=== PATIENT | male | born 1950 | race Caucasian/White ===

== ENCOUNTER 2016-05-04 12:05 | Day surgery (SDC) | payer OTHER ==
[2016-05-03 14:34] VITALS: BMI 28.1
[~2016-05-04 12:05] MED LIST: DEXAMETHASONE SOD PHOSPHATE 10 MG/ML 1 ML VIAL IV ONE; HEPARIN SODIUM,PORCINE 5,000 UNIT/ML 1 ML VIAL SQ ONE; LACTATED RINGERS 1,000 ML IV SCH; LIDOCAINE 1% 20 ML VIAL (10MG/ML) FOR IV START INTRADERMA PRN; MORPHINE SULFATE 4 MG/ML SYRINGE IV PRN; ONDANSETRON 4 MG/2 ML VIAL IVP ONE; SCOPOLAMINE 1.5MG/72HR PATCH TRANSDERM ONE; ceFAZolin 2 GM in SODIUM CHLORIDE 0.9% 100 ML IVPB ONE
[2016-05-04] MEDS ORDERED: fentaNYL (PF) 50 MCG/ML 2 ML AMP ONE (15:02)
[2016-05-04] MEDS ORDERED: LIDOCAINE 1% INJ 10MG/ML (20 ML MDV) ONE (15:02)
[2016-05-04] MEDS ORDERED: MIDAZOLAM 2 MG/2 ML VIAL ONE (15:02)
[2016-05-04] MEDS ORDERED: PROPOFOL 10 MG/ML 20 ML VIAL IV ONE (15:02)
[2016-05-04] MEDS ORDERED: BUPIVACAIN-EPI 0.25%-1:200,000 30 ML VIAL SQ ONE ×3 (15:25)
[2016-05-04] MEDS ORDERED: LACTATED RINGERS 1,000 ML IV ONE (15:48)
[2016-05-04 16:12] VITALS: TEMP 97.6
[2016-05-04 16:16] VITALS: RESP 16
--- NOTE | 2016-05-04 16:33 | P.OP ---
Date of Procedure: 05/04/16 Preoperative Diagnosis: Incarcerated umbilical hernia Postoperative Diagnosis: SAme Procedure(s) Performed: Open umbilical hernia repair without mesh Implants: NA Anesthesia: BERENICEA, local Surgeon: Fozia Guzmán Pathology: other Condition: stable Disposition: PACU Indications for Procedure: 66 years old male presents for umbilical hernia repair. He has incarcerated umbilical hernia with skin necrosis. Patient also has inguinal hernia. He was explained that no mesh can be put in in case of active infection. Hence this is going to be two-stage surgery. Today's surgery would involve excision of the necrotic skin and primary repair of the umbilical hernia. A definite elective surgery would be performed to repair both groin hernias and umbilical hernia with mesh on a future date Operative Findings: Incarcerated umbilical hernia with skin necrosis Description of Procedure: The patient was brought to the operating room and placed in supine position. Gen. anesthesia with endotracheal intubation was performed as per anesthesia team. Chlorhexidine was used to prep the skin followed by application of sterile drapes. A timeout was performed to verify correct patient and correct procedure. Patient was confirmed to receive perioperative IV antibiotics and bilateral SCDs were placed along with a demonstration of subcutaneous heparin. There was a incarcerated umbilical hernia with skin necrosis. An elliptical skin incision was made to excise the necrotic skin. Umbilical hernia containing preperitoneal fat was identified. This was reduced. The final defect measured 2 x 2 cm. The defect was closed with figure of eights sutures of #1 Surgilon. The subcutaneous tissue was closed in 2 layers. Dermabond skin glue was applied. Patient tolerated the procedure well. The sponge, instrument and needle count were correct 2
[2016-05-04 17:24] VITALS: BP 154/82; PULSE 73
== END 2016-05-04 17:51 | disposition home or self-care (01) ==
LOC: OR 12:05
PROVIDERS: ATTEND Surgery
DX: K42.0 Umbilical hernia with obstruction, without gangrene (principal); I96 Gangrene, not elsewhere classified; I10 Essential (primary) hypertension; Z86.73 Personal history of transient ischemic attack (TIA), and cerebral infarction without residual deficits; Z79.82 Long term (current) use of aspirin; Z79.899 Other long term (current) drug therapy
CPT/HCPCS: 84153; 87070; 87205; 87075; 36415; 49587; J2250; J1644; J1100; J0690; J2405; J2001; J3010; J2704

== ENCOUNTER → 2016-05-04 | Outpatient (CLI) | payer OTHER | END | disposition home or self-care (01) | LOC: LABWHC1 10:51 | PROVIDERS: ATTEND Urology | DX: R97.20 Elevated prostate specific antigen [PSA] (principal) | CPT/HCPCS: 36415; 84153 ==

== ENCOUNTER → 2016-05-14 | Outpatient (CLI) | payer OTHER | END | disposition home or self-care (01) | LOC: LABWHC1 07:57 | PROVIDERS: ATTEND Surgery | DX: Z01.818 Encounter for other preprocedural examination (principal) | CPT/HCPCS: 87070 ==

== ENCOUNTER 2016-06-17 07:00 | Day surgery (SDC) | payer OTHER ==
[2016-06-16 08:20] VITALS: BMI 27.9
[~2016-06-17 07:00] MED LIST changes: +HYDROmorphone 1 MG/ML 1 ML SYRINGE IVP PRN; -LIDOCAINE 1% 20 ML VIAL (10MG/ML) FOR IV START INTRADERMA PRN; +MIDAZOLAM 2 MG/2 ML VIAL IV PRN; -MORPHINE SULFATE 4 MG/ML SYRINGE IV PRN
[2016-06-17 07:22] VITALS: TEMP 97.7
[2016-06-17] MEDS ORDERED: LIDOCAINE 1% 20 ML VIAL (10MG/ML) FOR IV START INTRADERMA ONE (07:40)
[2016-06-17 07:46] LABS: Basophils # (A) 0.1 k/uL (0-0.2); Basophils % (A) 1 %; CH 29.7; CHCM 34.9; Eosinophils # (A) 0.3 k/uL (0-0.7); Eosinophils % (A) 5 %; HCT 47.5 % (39.0-53.0); HDW 3.09; HGB 15.9 gm/dL (13.0-17.5); Luc # (Auto) 0.09; Luc % (Auto) 1; Lymphocytes # (A) 1.4 k/uL (1.0-4.8); Lymphocytes % (A) 22 %; MCH 28.6 pg (25.0-35.0); MCHC 33.5 g/dL (31.0-37.0); MCV 85.4 fL (80.0-100.0); Monocytes # (A) 0.5 k/uL (0-1.0); Monocytes % (A) 8 %; Neutrophils # (A) 4.2 k/uL (1.3-7.7); Neutrophils % (A) 64 %; RBC 5.56 m/uL (4.30-5.90); RDW 14.5 % (11.5-15.5); WBC 6.5 k/uL (3.8-10.6); WBC (Perox) 6.53
[2016-06-17 08:00] LABS: Anion Gap 11 mmol/L; Blood Urea Nitrogen 19 mg/dL (9-20); Calcium 9.3 mg/dL (8.4-10.2); Carbon Dioxide 23 mmol/L (22-30); Chloride 110 mmol/L (98-107); Glucose 123 mg/dL (74-99); Non-African American GFR(MDRD) >60 (>60 ml/min/1.73 sqM); Potassium 4.3 mmol/L (3.5-5.1); Sodium 144 mmol/L (137-145)
[2016-06-17] MEDS ORDERED: fentaNYL (PF) 50 MCG/ML 2 ML AMP ONE (08:13)
[2016-06-17] MEDS ORDERED: ROCURONIUM BROMIDE 10 MG/ML 10 ML VIAL IV ONE (08:13)
[2016-06-17] MEDS ORDERED: NEOSTIGMINE 1 MG/ML 10 ML VIAL ONE (08:13)
[2016-06-17] MEDS ORDERED: LIDOCAINE 1% INJ 10MG/ML (20 ML MDV) ONE (08:13)
[2016-06-17] MEDS ORDERED: ePHEDrine 50 MG/ML 1 ML AMP ONE (08:13)
[2016-06-17] MEDS ORDERED: GLYCOPYRROLATE 0.2 MG/ML 2 ML VIAL ONE (08:13)
[2016-06-17] MEDS ORDERED: PHENYLEPHRINE-0.9% NACL SYG 1 MG/10 ML SYRINGE ONE (08:13)
[2016-06-17] MEDS ORDERED: ONDANSETRON 4 MG/2 ML VIAL ONE (08:13)
[2016-06-17] MEDS ORDERED: PROPOFOL 10 MG/ML 20 ML VIAL IV ONE (08:13)
[2016-06-17] MEDS ORDERED: SUCCINYLCHOLINE CHLORIDE 100 MG/5 ML SYR IV ONE (08:13)
[2016-06-17] MEDS ORDERED: HYDROmorphone (PF) 1 MG/ML ONE (08:13)
[2016-06-17] MEDS ORDERED: MIDAZOLAM 2 MG/2 ML VIAL ONE (08:13)
--- NOTE | 2016-06-17 08:14 | P.GSHP ---
History of Present Illness H&P Date: 06/17/16 Chief Complaint: Umbiloical hernia and right inguinal hernia 66 yrs old male presents with incarcerated umbilical hernia with redness and skin necrosis. He had tooth extraction and was treated with PCN and has helped with the redness. He also has right inguinal hernia . No obstruction. No fever, chills, rigors. He is S/P excision of necrotic skin and primary umbilical hernia repair without any mesh ROS Constitutional: No fever, chills or rigors. 20 lbs weight loss or loss of appetite. HEENT: No difficulty with hearing, vision and swallowing. Lymphatic: No axillary, inguinal and cervical swellings. Endocrine: No thyroid disorders. Denies history of diabetes. Respiratory: No chest pain, shortness of breath, and cough. No hemoptysis. Cardiovascular: No palpitations, irregular HR Gastrointestinal: Denies heartburn. No change in bowel habits. No nausea or vomiting. Genitourinary: No increase in urinary frequency or urgency. No hematuria. Musculoskeletal: No back pain, joint stiffness or pain. Neurologic: No history of seizure disorder and headaches. Psychiatric: Denies depression or anxiety . No suicidal ideation. Hematologic: Denies any abnormal mucosal bleeding or easy bruising. Physical Exam Patient is a 66-year-old male. Constitutional: General Appearance: healthy-appearing, well-nourished, and well- developed. Level of Distress: NAD. Ambulation: ambulating normally. Psychiatric: Insight: good judgement. Orientation: to time, place, and person. Head: Head: normocephalic and atraumatic. Eyes: Lids and Conjunctivae: no discharge or pallor and non-injected. Sclerae: non-icteric. ENMT: Oropharynx: moist mucous membranes. Abdomen: Bowel Sounds: normal. Inspection and Palpation: no tenderness or guarding and soft and non-distended. Hernia: inguinal R and wellhealed umbilical hernia scar. Diastasis recti present Musculoskeletal:: Motor Strength and Tone: normal and normal tone. Joints, Bones , and Muscles: normal movement of all extremities. Extremities: no cyanosis or edema. Neurologic: Gait and Station: normal gait and station. Cranial Nerves: grossly intact. Assessment / Plan 1. Ventral/umbilical hernia and right inguinal hernia 2. Informed consent obtained from the patient after explaining the risks, benefits and potential complications of laparoscopic /robotic ventral hernia and inguinal hernia including bleeding, infection, bruising, DVT and recurrence and possibility of converting to open 3. Patient demonstrated understanding of the procedure and agreed to undergo laparoscopic/robotic ventral hernia repair with mesh possible open and possible bilateral inguinal hernia repair with mesh 4. Expected post op course discussed including no heavy lifting >10 lbs for 6 weeks post surgery Preop orders: 1. Ancef 2 gm IVPB x1 2. Bilateral lower extremity SCDs 3. Heparin 5000 Units SQ injection x1 1. Irreducible umbilical hernia K42.0: Umbilical hernia with obstruction, without gangrene 2. Right inguinal hernia K40.90: Unilateral inguinal hernia, without obstruction or gangrene, not specified as recurrent Past Medical History Past Medical History: CVA/TIA, Hypertension Additional Past Medical History / Comment(s): WEAKNESS LEFT SIDE OF FACE, OCCASIONAL PROBLEM SPEECH, inguinal and umbilical History of Any Multi-Drug Resistant Organisms: None Reported Past Surgical History: Hernia Repair, Tonsillectomy Additional Past Surgical History / Comment(s): umbilical hernia 05/04/16, TEETH EXTRACTIONS Past Anesthesia/Blood Transfusion Reactions: No Reported Reaction Past Psychological History: No Psychological Hx Reported Smoking Status: Never smoker Past Alcohol Use History: Rare Past Drug Use History: None Reported - Past Family History Father Family Medical History: Cancer Additional Family Medical History / Comment(s): COLON CANCER Medications and Allergies Home Medications Medication Instructions Recorded Confirmed Type Aspirin 81 mg PO DAILY 05/03/16 06/16/16 History amLODIPine [Norvasc] 10 mg PO QAM 05/03/16 06/16/16 History Losartan Unknown Dose 1 tab PO QAM 06/16/16 History Allergies Allergy/AdvReac Type Severity Reaction Status Date / Time No Known Allergies Allergy Verified 06/16/16 08:13 Surgical - Exam Vital Signs Temp Pulse Resp BP Pulse Ox 97.7 F 54 L 16 154/75 96 06/17/16 07:20 06/17/16 07:20 06/17/16 07:20 06/17/16 07:20 06/17/16 07:20 Results - Labs 06/17/16 07:25 06/17/16 07:25 Abnormal Lab Results - Last 24 Hours (Table) 06/17/16 Range/Units 07:25 Chloride 110 H (98-107) mmol/L Glucose 123 H (74-99) mg/dL Diabetes panel 06/17/16 Range/Units 07:25 Sodium 144 (137-145) mmol/L Potassium 4.3 (3.5-5.1) mmol/L Chloride 110 H (98-107) mmol/L Carbon Dioxide 23 (22-30) mmol/L BUN 19 (9-20) mg/dL Creatinine 0.84 (0.66-1.25) mg/dL Glucose 123 H (74-99) mg/dL Calcium 9.3 (8.4-10.2) mg/dL Calcium panel 06/17/16 Range/Units 07:25 Calcium 9.3 (8.4-10.2) mg/dL Pituitary panel 06/17/16 Range/Units 07:25 Sodium 144 (137-145) mmol/L Potassium 4.3 (3.5-5.1) mmol/L Chloride 110 H (98-107) mmol/L Carbon Dioxide 23 (22-30) mmol/L BUN 19 (9-20) mg/dL Creatinine 0.84 (0.66-1.25) mg/dL Glucose 123 H (74-99) mg/dL Calcium 9.3 (8.4-10.2) mg/dL Adrenal panel 06/17/16 Range/Units 07:25 Sodium 144 (137-145) mmol/L Potassium 4.3 (3.5-5.1) mmol/L Chloride 110 H (98-107) mmol/L Carbon Dioxide 23 (22-30) mmol/L BUN 19 (9-20) mg/dL Creatinine 0.84 (0.66-1.25) mg/dL Glucose 123 H (74-99) mg/dL Calcium 9.3 (8.4-10.2) mg/dL
[2016-06-17] MEDS ORDERED: BUPIVACAIN-EPI 0.25%-1:200,000 30 ML VIAL SQ ONE (08:50)
[2016-06-17] MEDS ORDERED: LACTATED RINGERS 1,000 ML IV ONE ×2 (10:56→14:43)
[2016-06-17 12:47] VITALS: RESP 18
[2016-06-17] MEDS ORDERED: HYDROcodone/APAP 5-325MG 1 EACH TAB PO ONE (15:29)
[2016-06-17 15:33] VITALS: BP 116/62; PULSE 90
[2016-06-17] MEDS ORDERED: TAMSULOSIN 0.4 MG CAP.ER.24H PO STA (16:32)
--- NOTE | 2016-06-22 13:26 | P.OP ---
Date of Procedure: 06/17/16 Preoperative Diagnosis: 1. Bilateral inguinal hernia 2. Umbilical hernia 3. Hypertension 4. Benign prostatic hypertrophy Postoperative Diagnosis: Same Procedure(s) Performed: Robotic-assisted laparoscopic bilateral indirect hernia repair with mesh Robotic assist laparoscopic umbilical hernia repair with mesh Implants: Covidien Progrip x2 Ventralight ST 11.4 cm circular Anesthesia: DARRON Surgeon: Fozia Guzmán Estimated Blood Loss (ml): 15 Pathology: none sent Condition: other (ASA 3) Disposition: PACU Indications for Procedure: 66 years old male presents with bilateral inguinal hernia. He had infected umbilical hernia which was primarily repaired without any mesh. Informed consent obtained and patient elected to undergo robotic assist laparoscopic bilateral inguinal hernia repair with mesh and umbilical hernia repair with mesh. Operative Findings: Bilateral large direct inguinal hernias Umbilical hernia defect reinforced using ventralight ST mesh Description of Procedure: The patient was brought to the operating room and placed in supine position. General anesthesia with endotracheal intubation was performed as per anesthesia team. Both arms were tucked against the abdominal wall and a shunt was positioned in lithotomy using yellowfin stirrups. A alvarado catheter was inserted under sterile aseptic precautions. Chlorhexidine was used to prep the skin followed by application of sterile drapes and Ioban dressing. A timeout was performed to verify correct patient, correct procedure and correct side. Patient was confirmed to receive perioperative IV antibiotics, subcutaneous heparin 5000 units and bilateral SCDs were placed. A 2 mm skin incision was made in the left subcostal area and Veress needle was inserted to establish pneumoperitoneum to a pressure of 15 mmHg. A 1.5 cm supraumbilical incision was made which was deepened through the subcutaneous tissue . Two additional 8 mm skin incisions were made on either side of the midline approximately 8 cm away. A 5 mm 30 laparoscope was used to enter the peritoneum using direct Optiview technique. A 8 mm robotic trocar was inserted in the supraumbilical area and 8 mm robotic trocars were inserted on either side of the midline. The patient was placed in Trendelenburg position and the robot was brought in between the legs. The robotic arms including the camera arm were docked on the trocars. The robotic prograsp and monopolar scissors were introduced via arm 1 and 2 respectively. Upon inspection of the peritoneal cavity, bilateral direct hernias identified. The العلي anatomical landmarks including the pubic symphysis, median and medial umbilical ligaments and bilateral epigastric vessels were identified. Attention was focused on the left side first. Using monopolar scissors a peritoneal flap was created extending medially from the median umbilical ligament and laterally to the direct hernia space. Using gentle traction and countertraction the flap was developed posteriorly. Loose fibrofatty tissue was bluntly dissected. Medially the dissection was carried along the Carlos's ligament till pubic tubercle was identified. Care was taken to stay away from the urinary bladder. Dissection was carried out to leave the epigastric vessels against the anterior abdominal wall and laterally beyond the hernia defect. The direct hernia sac was completely reduced. The iliofemoral vessels were identified. The peritoneal reflection overlying the spermatic cord was also dissected off. Care was taken not to injure any gonadal vessels or spermatic cord. Enough inferior dissection was carried out 2 cm below the hernia defect. No indirect hernia noted. Attention was then focused on the right side where similar dissection was performed to identify the above-mentioned العلي anatomical landmarks. Gentle traction and countertraction helped in reduction of the hernia sac. No bleeding was encountered. The iliofemoral vessels, spermatic cord and vas deferens were protected at all times. Laparoscopic parietex progrip mesh was rolled and introduced through the 12 mm camera port. The right mesh was placed in the preperitoneal cavity with green portion overlying the pubic tubercle . The mesh was rolled upwards so that the mesh covered the direct , indirect inguinal hernia and the femoral hernia space without any kinks or folds. Similarly left parietex progrip mesh was rolled and introduced through the 12 mm camera port and secured over the right direct, indirect and femoral hernia space. The peritoneal flap was then sutured to the cut edge of the peritoneum using continuous 2-0 V lock sutures. The hernia sacs were completely reduced and the mesh lay flat without any kinks or folds. The 12 mm trocar site was closed using Joby Lynch device. The robotic arms were then undocked and 30 degree laparoscope was inserted. Additional one 8 mm trocars was placed in the left lower quadrant and 12 mm trocar in the left lateral abdomen.The da Artem robot was then docked. The 30 robotic camera was used. A robotic prograsp and monopolar scissors were inserted through 8 mm robotic trocars The falciform ligament was divided using monopolar scissors close to the anterior abdominal wall to create a landing zone for the mesh. The prior umbilical hernia was closed and decision was made to reinforce it with an underlay mesh/ A Ventralight ST 11.4 cm circular mesh was tagged in the center using a prolene stitich and was rolled and introduced to the abdominal cavity via the 12 mm trocar.A Joby Bebeto device was inserted through the middle of the hernia defect and the stay suture on the mesh was grasped to elevate the mesh against the anterior abdominal wall. The mesh was circumferentially sutured to the peritoneum of the anterior abdominal wall using 2-0 V lock without any folds or kinks. The robot was then undocked. Laparoscopic 30 degrees camera was reinserted. All trocar sites were examined. No evidence of bleeding. The 12 mm trocar site was closed using two transfascial sutures of 0 Vicryl which were placed using a Joby Bebeto device. Along the All the needles were removed from the abdominal cavity.The sponge, instrument and needle count were correct x2. The skin was closed with interrupted sutures of 4-0 Monocryl. Dermabond skin glue was applied followed by Telfa and Tegaderm dressing. Alvarado catheter was removed and scrotum was palpated to confirm the position of the testicles. The patient tolerated the procedure well and was taken to post anesthesia care unit in stable condition
== END 2016-06-17 18:03 | disposition home or self-care (01) ==
LOC: OR 07:00
PROVIDERS: ATTEND Surgery
DX: K40.20 Bilateral inguinal hernia, without obstruction or gangrene, not specified as recurrent (principal); K42.0 Umbilical hernia with obstruction, without gangrene; I10 Essential (primary) hypertension; N40.0 Benign prostatic hyperplasia without lower urinary tract symptoms; I69.392 Facial weakness following cerebral infarction; I69.328 Other speech and language deficits following cerebral infarction; Z79.82 Long term (current) use of aspirin; Z79.891 Long term (current) use of opiate analgesic; Z79.899 Other long term (current) drug therapy; Z80.0 Family history of malignant neoplasm of digestive organs
CPT/HCPCS: 80048; 85025; 49653; 49650; C1781 ×2; J2250; J1644; J1100; J2710; J0690; J2405; J2001; J3010; J1170; J2370; J0330; J2704

== ENCOUNTER → 2016-08-03 | Outpatient (CLI) | payer OTHER ==
[2016-08-03 18:17] LABS: ALT 49 U/L (21-72); AST 35 U/L (17-59)
== END | disposition home or self-care (01) ==
LOC: LABWHC1 17:18
PROVIDERS: ATTEND Podiatrist Foot & Ankle Surgery
DX: K74.60 Unspecified cirrhosis of liver (principal)
CPT/HCPCS: 36415; 84450; 84460

== ENCOUNTER 2016-11-17 09:02 | Emergency (ER) | payer OTHER ==
[2016-11-17] MEDS ORDERED: ceFAZolin 2 GM in SODIUM CHLORIDE 0.9% 100 ML IVPB STA (09:30)
[2016-11-17] MEDS ORDERED: DIPH,PERTUS(ACELL)TETVAC-LF 0.5 ML VIAL IM ONE (09:30)
[2016-11-17] MEDS ORDERED: HYDROmorphone 1 MG/ML 1 ML SYRINGE IVP STA (09:32)
[2016-11-17] MEDS ORDERED: LORazepam 2 MG/ML SYRINGE IV STA (10:35)
--- NOTE | 2016-11-17 11:04 | ED ---
General Adult HPI <Dwayne Wayne - Last Filed: 11/17/16 13:04> - General Source: patient, EMS, RN notes reviewed, old records reviewed Mode of arrival: EMS Limitations: no limitations <Gaby Lizama - Last Filed: 11/18/16 13:55> - General Chief complaint: Trauma Stated complaint: Right Arm Injury-[facility] Time Seen by Provider: 11/17/16 09:05 - History of Present Illness Initial comments: This is a 66-year-old male presenting to the emergency Department chief complaint of lacerations over the fifth and fourth finger as well as the right forearm. Patient reports that he was trying to back up a trailer into a hitch and his hand was caught between the 2. Patient is right-handed. Does not know last time he had a tetanus vaccination. Patient reports that he has difficulty flexing and extending his fourth and fifth finger. He reports that the skin is been ripped off of the finger. Patient states that he has no elbow pain denies any shoulder pain. He did this at work. (Gaby Lizama) - Related Data Home Medications Medication Instructions Recorded Confirmed Aspirin 81 mg PO DAILY 05/03/16 11/17/16 Losartan Potassium [Cozaar] 100 mg PO DAILY 11/17/16 11/17/16 Terbinafine [LamISIL] 250 mg PO DAILY 11/17/16 11/17/16 amLODIPine [Norvasc] 10 mg PO DAILY 11/17/16 11/17/16 Previous Rx's Medication Instructions Recorded Tamsulosin HCl [Flomax] 0.4 mg PO DAILY #30 cap.er.24h 06/17/16 Cephalexin [Keflex] 500 mg PO Q6H #40 cap 11/17/16 HYDROcodone/APAP 10-325MG [[place] 1 tab PO Q6H PRN #20 tab 11/17/16 10-325] Allergies Allergy/AdvReac Type Severity Reaction Status Date / Time No Known Allergies Allergy Verified 11/17/16 09:26 Review of Systems ROS Other: All systems not noted in ROS Statement are negative. <Dwayne Wayne - Last Filed: 11/17/16 13:04> ROS Other: All systems not noted in ROS Statement are negative. <Gaby Lizama - Last Filed: 11/18/16 13:55> ROS Statement: Those systems with pertinent positive or pertinent negative responses have been documented in the HPI. Past Medical History Past Medical History: Hypertension Additional Past Medical History / Comment(s): WEAKNESS OF LEFT SIDE OF FACE, OCCASIONAL PROBLEM SPEECH History of Any Multi-Drug Resistant Organisms: None Reported Past Surgical History: Tonsillectomy Additional Past Surgical History / Comment(s): TEETH EXTRACTIONS Past Anesthesia/Blood Transfusion Reactions: No Reported Reaction Past Psychological History: No Psychological Hx Reported Smoking Status: Never smoker Past Alcohol Use History: Rare Past Drug Use History: None Reported - Past Family History Father Family Medical History: Cancer Additional Family Medical History / Comment(s): COLON CANCER <Gaby Lizama - Last Filed: 11/18/16 13:55> General Exam <Dwayne Wayne - Last Filed: 11/17/16 13:04> Limitations: no limitations General appearance: alert, in no apparent distress Head exam: Present: atraumatic, normocephalic, normal inspection Eye exam: Present: normal appearance, PERRL, EOMI. Absent: scleral icterus, conjunctival injection, periorbital swelling ENT exam: Present: normal exam, mucous membranes moist Neck exam: Present: normal inspection. Absent: tenderness, meningismus, lymphadenopathy Respiratory exam: Present: normal lung sounds bilaterally. Absent: respiratory distress, wheezes, rales, rhonchi, stridor Cardiovascular Exam: Present: regular rate, normal rhythm, normal heart sounds. Absent: systolic murmur, diastolic murmur, rubs, gallop, clicks GI/Abdominal exam: Present: soft, normal bowel sounds. Absent: distended, tenderness, guarding, rebound, rigid Right Elbow exam: Present: normal inspection, full ROM Forearm Wrist exam: Present: laceration (Patient a 12 cm laceration over the lateral right forearm. Evidence of muscle involvement. Patient's fascia is exposed.). Absent: normal inspection Hand Wrist exam: Present: laceration (Patient has severe lacerations over the fourth, fifth, and first digit. ). Absent: normal inspection Hand L/R Front: 1 - laceration (laceration extednign all of finger. Patient does not have finger pad), avulsion 2 - laceration (Laceration of finger tip. Skin is macerated.) Hand L/R Back: 1 - laceration 2cm 2 - laceration, 3cm Neuro motor exam: Present: wrist extension intact, thumb IP flexion intact, thumb adduction intact. Absent: fingers 2-5 abduction intact Vascular: Present: normal capillary refill Back exam: Present: normal inspection Neurological exam: Present: alert, oriented X3, CN II-XII intact <Gaby Lizama - Last Filed: 11/18/16 13:55> - General Exam Comments Initial Comments: This is a 66-year-old male. Patient is resting comfortably in bed. Patient does appear somewhat anxious. (Gaby Lizama) Course <Dwayne Wayne - Last Filed: 11/17/16 13:04> <Gaby Lizama - Last Filed: 11/18/16 13:55> Vital Signs 11/17/16 11/17/16 09:06 14:43 Temperature 97 F L 97.0 F L Pulse Rate 100 65 Respiratory 18 20 Rate Blood Pressure 174/86 130/74 O2 Sat by Pulse 98 95 Oximetry - Reevaluation(s) Reevaluation #1: 11/17/16 11:02 Patient has a thick collar drink over the right fourth finger. It is taken an hour in multiple staff to remove. (Gaby Lizama) Procedures - Laceration Laceration #1 Site: upper extremity (right forearm) Size (cm): 10 Description: linear Depth: involves muscle layer Anesthetic Used: lidocaine 1% Anesthesia Technique: local infiltration Amount (mls): 10 Pre-repair: wound explored, irrigated extensively Type of Sutures: nylon, vicryl Size of Sutures: 5-0 Number of Sutures: 20 (14 nylon, 6 vicryl) Technique: simple, interrupted Patient Tolerated Procedure: well, no complications Laceration #2 Site: hand (right thumb) Size (cm): 3 Description: linear Depth: simple, single layer Anesthetic Used: lidocaine 1% Anesthesia Technique: local infiltration Amount (mls): 5 Pre-repair: wound explored, irrigated extensively Type of Sutures: nylon Size of Sutures: 5-0 Number of Sutures: 4 Technique: simple, interrupted, running Patient Tolerated Procedure: well, no complications Laceration #3 Site: hand (fifth finger) Size (cm): 8 Description: flap, avulsion, irregular Depth: involves muscle layer, involves tendon Anesthetic Used: lidocaine 1% Anesthesia Technique: nerve block Amount (mls): 4 Pre-repair: wound explored, irrigated extensively Type of Sutures: nylon Size of Sutures: 5-0 Number of Sutures: 7 Technique: simple, interrupted Patient Tolerated Procedure: well, no complications Laceration #4 Site: hand (right fourth digit) Size (cm): 7 Description: linear, flap Depth: involves muscle layer Anesthetic Used: lidocaine 1% Anesthesia Technique: nerve block Amount (mls): 4 Pre-repair: wound explored, irrigated extensively Type of Sutures: nylon Size of Sutures: 5-0 Number of Sutures: 11 Technique: simple, interrupted Patient Tolerated Procedure: well Laceration #5 Site: hand (dorsum hand between 1st and second digit) Size (cm): 3 Description: linear Depth: simple, single layer Anesthetic Used: lidocaine 1% Anesthesia Technique: local infiltration Amount (mls): 2 Pre-repair: wound explored, irrigated extensively Type of Sutures: nylon Size of Sutures: 5-0 Number of Sutures: 3 Technique: simple, interrupted Patient Tolerated Procedure: well, no complications <Gaby Lizama - Last Filed: 11/18/16 13:55> Medical Decision Making <Dwayne Wayne - Last Filed: 11/17/16 13:04> - Radiology Data Radiology results: report reviewed <Gaby Lizama - Last Filed: 11/18/16 13:55> - Medical Decision Making Patient was reevaluated by myself, Dr. Wayne. Patient does have laceration of the right forearm that does go through the fascia and has minimal involvement of the muscle. Patient does have lacerations on the palmar side of the right fourth and fifth digits. Right fourth digit laceration is a large flap. Right fifth laceration is somewhat flap with some macerated tissue. Patient does have sensation distally and cap refill less than 2 seconds. Patient is able to flex both fingers against resistance. Case was discussed with Dr. North who recommends patient be nothing by mouth after midnight and they will see him in the office tomorrow. Patient and family were notified of this. (Dwayne Wayne) 66-year-old male with a severe right hand injury after an accident at work. Patient has macerated and fifth finger. Laceration over the thumb. 10 cm laceration over the right forearm. All his wounds were thoroughly irrigated. Patient was given an updated tetanus. 2 g of IM Given an IV Fluids and Pain Medication. Patient Received a Total of 52 Stitches between All Lacerations. Patient Case Discussed with Orthopedic. Fabiana Fraire Did Call Back and Patient Will Be Seen in the Orthopedic Office after in the Emergency Department Visit. I Loosely Closed All the Lacerations. It Was Difficult to Close the Fourth and Fifth Finger Lacerations As the Skin Was Ripped. An Macerated. Patient Will Be Seen by Orthopedics Directly after Leaving the Emergency Department. Patient Will Be Receiving Surgery for Open Tuft Fractures Tomorrow Morning. ( Gaby Lizama) - Radiology Data Right forearm shows no acute fracture dislocation. Fractures of the tuft of the second and fourth digit distal phalanx questionable fracture through the tuft of the fifth digit. Soft tissue injuries with findings suspicious sister's foreign body in the third digit. ( Gaby Lizama) Disposition <Dwayne Wayne - Last Filed: 11/17/16 13:04> Time of Disposition: 14:37 <Gaby Lizama - Last Filed: 11/18/16 13:55> Clinical Impression: Open fracture of tuft of distal phalanx of finger, Forearm laceration Disposition: HOME SELF-CARE Condition: Good Instructions: Finger Fracture (ED) Additional Instructions: Physical directly to web specialist. Patient is to remain nothing by mouth at midnight. Scheduling surgery for tomorrow. Take antibiotics and pain medication as directed. Prescriptions: Cephalexin [Keflex] 500 mg PO Q6H #40 cap HYDROcodone/APAP 10-325MG [[place] 10-325] 1 tab PO Q6H PRN #20 tab PRN Reason: Pain Referrals: None,Stated [Primary Care Provider] - 1-2 days Aki Bauer DO [Doctor of Osteopathic Medicine] - 1-2 days
--- NOTE | 2016-11-17 12:00 | XR ---
EXAMINATION TYPE: XR forearm RT DATE OF EXAM: 11/17/2016 COMPARISON: NONE HISTORY: Pain Two views of the forearm demonstrate that the osseous structures appear to be intact and the joint sp aces appear to be preserved. There is no acute fracture or dislocation. Hypertrophic changes involv ing the elbow joint noted. Arthropathy of the radial carpal joint noted. IMPRESSION: 1. No acute fracture or dislocation
--- NOTE | 2016-11-17 12:04 | XR ---
EXAMINATION TYPE: XR hand complete RT DATE OF EXAM: 11/17/2016 COMPARISON: NONE HISTORY: Pain TECHNIQUE: Three views are submitted. FINDINGS: There is a large soft tissue injury involving the distal phalanx fourth digit with fracture involving the tuft distal phalanx. There are numerous radiopaque foreign body seen within the soft tissues. Th is is seen adjacent to the distal phalanx fourth digit as well as along the proximal shafts of the fo urth and fifth digits. There is a fracture through the tuft of the second digit. Arthropathy of the radiocarpal joint noted. Cystic changes involving the lunate appear chronic. Questionable lucency through the tuft of the distal phalanx fifth digit. IMPRESSION: 1. Fractures of the tuft of the second and fourth digit distal phalanx and questionable fracture thro ugh the tuft fifth digit. 2. Soft tissue injury with findings suspicious for foreign body.
[2016-11-17 14:44] VITALS: BP 130/74; PULSE 65; RESP 20; TEMP 97
== END 2016-11-17 15:00 | disposition home or self-care (01) ==
LOC: EC 09:02
DX: S62.630B Displaced fracture of distal phalanx of right index finger, initial encounter for open fracture (principal); S62.634B Displaced fracture of distal phalanx of right ring finger, initial encounter for open fracture; S61.011A Laceration without foreign body of right thumb without damage to nail, initial encounter; S61.411A Laceration without foreign body of right hand, initial encounter; S51.811A Laceration without foreign body of right forearm, initial encounter; S61.216A Laceration without foreign body of right little finger without damage to nail, initial encounter; I10 Essential (primary) hypertension; Z23 Encounter for immunization; Z79.82 Long term (current) use of aspirin; W23.1XXA Caught, crushed, jammed, or pinched between stationary objects, initial encounter; Y99.0 Civilian activity done for income or pay; Y92.69 Other specified industrial and construction area as the place of occurrence of the external cause
CPT/HCPCS: 99284; 12034; 12006; 96365; 96375 ×2; 90471; 73090; 73130; 90715; J2060; J0690; J1170

== ENCOUNTER 2018-12-26 06:54 | Emergency (ER) | payer OTHER ==
[2018-12-26 07:00] VITALS: RESP 18
[2018-12-26] MEDS ORDERED: LIDOCAINE 1% INJ 10MG/ML (20 ML MDV) SQ ONE (07:06)
--- NOTE | 2018-12-26 07:06 | ED ---
Wound/Laceration HPI - General Source: patient Mode of arrival: ambulatory Limitations: no limitations <Shellie Barclay - Last Filed: 12/26/18 08:20> <Naomy Gandhi - Last Filed: 12/27/18 12:11> - General Chief Complaint: Wound/Laceration Stated Complaint: Rt Hand Pinky Lac Time Seen by Provider: 12/26/18 06:56 - History of Present Illness Initial Comments: 68-year-old male presenting for evaluation of right fifth digit laceration. Patient states he was carrying a glass at 6:30 AM this morning when he tripped breaking the glass cutting his right small digit. Patient thought he needed laceration repair and presents emergency department for evaluation. Patient denies a limitations of range of motion of the digit he denies any decreased sensation or weakness he admits to pain at the site of laceration. Patient is unsure of foreign body. Patient denies any other areas of injury denies injury to the head neck back loss of consciousness. Patient's tetanus up-to-date within the last 5 years. Remaining review of system negative. Upon arrival patient appears well signs of acute distress. (Shellie Barclay) - Related Data Home Medications Medication Instructions Recorded Confirmed Aspirin 81 mg PO DAILY 05/03/16 12/26/18 Losartan Potassium [Cozaar] 100 mg PO DAILY 11/17/16 12/26/18 amLODIPine [Norvasc] 10 mg PO DAILY 11/17/16 12/26/18 Atorvastatin [Lipitor] 80 mg PO DAILY 12/26/18 12/26/18 Previous Rx's Medication Instructions Recorded Tamsulosin HCl [Flomax] 0.4 mg PO DAILY #30 cap.er.24h 06/17/16 Cephalexin [Keflex] 500 mg PO Q12HR 4 Days #8 cap 12/26/18 Allergies Allergy/AdvReac Type Severity Reaction Status Date / Time lactose Allergy Nausea & Verified 12/26/18 07:38 Vomiting & Diarrhea Review of Systems ROS Other: All systems not noted in ROS Statement are negative. <Shellie Barclay - Last Filed: 12/26/18 08:20> ROS Other: All systems not noted in ROS Statement are negative. <Naomy Gandhi - Last Filed: 12/27/18 12:11> ROS Statement: Those systems with pertinent positive or pertinent negative responses have been documented in the HPI. Past Medical History Past Medical History: CVA/TIA, Hypertension Additional Past Medical History / Comment(s): crush injury to right hand, History of Any Multi-Drug Resistant Organisms: None Reported Past Surgical History: Tonsillectomy Additional Past Surgical History / Comment(s): TEETH EXTRACTIONS, metacarpal surgery, Past Anesthesia/Blood Transfusion Reactions: No Reported Reaction Past Psychological History: No Psychological Hx Reported Smoking Status: Never smoker Past Alcohol Use History: Rare Past Drug Use History: None Reported - Past Family History Father Family Medical History: Cancer Additional Family Medical History / Comment(s): COLON CANCER <Shellie Barclay - Last Filed: 12/26/18 08:20> General Exam Limitations: no limitations <Shellie Barclay - Last Filed: 12/26/18 08:20> - General Exam Comments Initial Comments: General: The patient is awake and alert, in no distress, and does not appear acutely ill. Eye: Pupils are equal, round and reactive to light, extra-ocular movements are intact. No nystagmus. There is normal conjunctiva bilaterally. No signs of icterus. Cardiovascular: There is a regular rate and rhythm. No murmur, rub or gallop is appreciated. Respiratory: Lungs are clear to auscultation, respirations are non-labored, breath sounds are equal. No wheezes, stridor, rales, or rhonchi. Musculoskeletal: Upon inspection of the digits of the right hand there is a laceration deformity to the distal aspect of the right fifth digit. No evidence of obvious foreign body. No exposure of tendon. Length approximately 1.5 cm ulnar aspect of digit. Patient is able to fully range at the MCP DIP PIP with 5/5 strenght of right hand including affected digit. Old scarring is appreciated near the PIP joint on the ventral aspect. Sensation intact proximal and distal to injuury site . Radial pulses equal bilaterally 2+. Neurological: A&O x 3. CN II-XII intact grossly, There are no obvious motor or sensory deficits. Coordination appears grossly intact. Speech is normal. Skin: Skin is warm and dry and no rashes or lesions are noted. Psychiatric: Cooperative, appropriate mood & affect, normal judgment. (Shellie Barclay) Course Vital Signs 12/26/18 12/26/18 06:55 08:46 Temperature 97 F L 98.4 F Pulse Rate 79 70 Respiratory 18 18 Rate Blood Pressure 157/79 134/84 O2 Sat by Pulse 97 99 Oximetry Medical Decision Making <Shellie Barclay - Last Filed: 12/26/18 08:20> <Naomy Gandhi - Last Filed: 12/27/18 12:11> - Medical Decision Making 68-year-old male presents emergency department for finger laceration. Distal right fifth digit. Wound edge was near the edge of the nail plate but does not involve nail bed. Difficult for wound repair however wound edges approximately as well as possible. Patient tolerated procedure well. Area was irrigated and cleansed prior. XR (-) no osseous injury. No findings of tendon injury on exam/imaging. Patient TDAP UTD. Patient started on ppx antibiotics for infection given area of the laceration. Patient is to f/u in 7-10 days for suture removal. Patient is agreeable with care plan and f/u. Patient discharged appearing well after discussing case with attending provider. (Shellie Barclay) I was available for consultation in the emergency department. The history and physical exam were done by the midlevel provider. I was consulted for this patients care. I reviewed the case with the midlevel provider and based on their presentation of the patient, I agree with the assessment, medical decision making and plan of care as documented. Chart was dictated using [employer] dictation software. Attempts were made to correct any dictation errors however some typographical errors may persist. (Naomy Gandhi) Disposition Is patient prescribed a controlled substance at d/c from ED?: No Time of Disposition: 08:17 <Shellie Barclay - Last Filed: 12/26/18 08:20> <Naomy Gandhi - Last Filed: 12/27/18 12:11> Clinical Impression: Finger laceration, Finger injury Disposition: HOME SELF-CARE Condition: Good Instructions (If sedation given, give patient instructions): Care For Your Stitches (ED), Finger Laceration (ED) Additional Instructions: Please use medication as discussed. Please follow-up for suture removal in 7- 10days, wound check in 2-3 days with primary care provider. Please return to emergency room if the symptoms increase or worsen or for any other concerns. Prescriptions: Cephalexin [Keflex] 500 mg PO Q12HR 4 Days #8 cap Referrals: None,Stated [Primary Care Provider] - 1-2 days
--- NOTE | 2018-12-26 07:32 | XR ---
EXAMINATION TYPE: XR hand complete RT DATE OF EXAM: 12/26/2018 CLINICAL HISTORY: Right distal fifth digit laceration. TECHNIQUE: Frontal, lateral and oblique images of the right hand are obtained. COMPARISON: 11/17/2016 FINDINGS: There is soft tissue swelling and a soft tissue laceration of the distal fifth digit. There is sequela of old lacerations of the fourth in fifth distal phalangeal john as seen on the prior ex am of 11/17/2016 with sequela of prior osseous lacerations. No new laceration is seen of the osseous s tructures or acute fracture. Mild degenerative changes of the distal interphalangeal joints is first carpometacarpal joint. Positive ulnar variance noted incidentally.. IMPRESSION: Soft tissue laceration of the fifth digit with sequela of old healed lacerations of the f ourth and fifth digits. No new acute fracture or dislocation nor acute osseous laceration.
[2018-12-26] MEDS ORDERED: CEPHALEXIN 500MG STARTER PACK 4 CAP BTL PO STA (07:37)
[2018-12-26 08:48] VITALS: BP 134/84; PULSE 70; TEMP 98.4
== END 2018-12-26 08:41 | disposition home or self-care (01) ==
LOC: EC 06:54
DX: S61.216A Laceration without foreign body of right little finger without damage to nail, initial encounter (principal); I10 Essential (primary) hypertension; Z79.82 Long term (current) use of aspirin; Z79.899 Other long term (current) drug therapy; Z88.8 Allergy status to other drugs, medicaments and biological substances; Z86.73 Personal history of transient ischemic attack (TIA), and cerebral infarction without residual deficits; W25.XXXA Contact with sharp glass, initial encounter; Y93.89 Activity, other specified; Y92.69 Other specified industrial and construction area as the place of occurrence of the external cause; Y99.0 Civilian activity done for income or pay
CPT/HCPCS: 73130; 12001; 99282; J2001

== ENCOUNTER 2022-01-14 20:23 | Emergency (ER) | payer BC, MEDICARE ==
[2022-01-14 20:30] VITALS: TEMP 97.9
[2022-01-14 21:18] LABS: Basophils # (A) 0.1 k/uL (0-0.2); Basophils % (A) 1 %; Eosinophils # (A) 0.1 k/uL (0-0.7); Eosinophils % (A) 2 %; Lymphocytes # (A) 1.3 k/uL (1.0-4.8); Lymphocytes % (A) 14 %; MCH 29.9 pg (25.0-35.0); MCHC 34.6 g/dL (31.0-37.0); MCV 86.4 fL (80.0-100.0); Mean Platelet Volume 7.8; Monocytes # (A) 0.5 k/uL (0-1.0); Monocytes % (A) 6 %; Neutrophils # (A) 6.7 k/uL (1.3-7.7); Neutrophils % (A) 77 %; Platelet Count 216 k/uL (150-450); RBC 5.67 m/uL (4.30-5.90); WBC 8.7 k/uL (3.8-10.6)
[2022-01-14 21:28] LABS: Albumin 4.4 g/dL (3.5-5.0); Calcium 9.7 mg/dL (8.4-10.2); Potassium 4.5 mmol/L (3.5-5.1); Total Bilirubin 1.5 mg/dL (0.2-1.3); Total Protein 7.1 g/dL (6.3-8.2)
[2022-01-14 21:33] LABS: Appearance,Urine Clear (Clear); Bilirubin,Urine Negative (Negative); Blood,Urine Trace (Negative); Color,Urine Yellow; Glucose,Urine (UA) 4+ (Negative); Hyaline Casts,Urine 1 /lpf (0-2); Ketones,Urine Negative (Negative); Leukocyte Esterase,Urine Negative (Negative); Mucus,Urine Occasional /hpf; Nitrite,Urine Negative (Negative); PH, Urine 5.5 (5.0-8.0); Protein,Urine Trace (Negative); RBC,Urine 6 /hpf (0-5); Specific Gravity,Urine 1.023 (1.001-1.035); Squamous Epithelial Cell,Urine <1 /hpf (0-4); Urobilinogen,Urine <2.0 mg/dL (<2.0); WBC,Urine 5 /hpf (0-5)
--- NOTE | 2022-01-14 21:46 | XR ---
EXAMINATION TYPE: XR KUB DATE OF EXAM: 01/14/2022 COMPARISON: NONE HISTORY: Pain TECHNIQUE: 2 views upright FINDINGS: There is no sign of intestinal obstruction or pneumoperitoneum. Fecal pattern is normal. Th ere is a mild thoracolumbar dextroscoliosis. Lung bases are clear. No pathologic calcifications over the kidneys. IMPRESSION: Nonacute abdomen.
--- NOTE | 2022-01-14 23:16 | ED ---
Abdominal Pain HPI - General Chief Complaint: Abdominal Pain Stated Complaint: left side pain Time Seen by Provider: 01/14/22 23:01 Source: patient, RN notes reviewed, old records reviewed Mode of arrival: ambulatory Limitations: no limitations - History of Present Illness Initial Comments: This is a 71-year-old male to the emergency department for evaluation patient Dese for abdominal pain with nausea feels weak and vomit severe abdominal pain left-sided flank pain. Pain rating to his groin. Patient does admit to history of kidney stones.. no fevers again he does have nausea no vomiting no diarrhea. Patient does feel like he's having difficulty with urination MD Complaint: flank pain (left) Location: LLQ, suprapubic, L flank Radiation: suprapubic Migration to: suprapubic, L flank Severity: severe Severity scale (1-10): 10 Quality: stabbing, sharp Consistency: constant Improves With: nothing Worsens With: nothing Associated Symptoms: nausea Treatments Prior to Arrival: other (0) - Related Data Home Medications Medication Instructions Recorded Confirmed Aspirin 81 mg PO DAILY 05/03/16 12/26/18 Losartan Potassium [Cozaar] 100 mg PO DAILY 11/17/16 12/26/18 amLODIPine [Norvasc] 10 mg PO DAILY 11/17/16 12/26/18 Atorvastatin [Lipitor] 80 mg PO DAILY 12/26/18 12/26/18 Previous Rx's Medication Instructions Recorded Tamsulosin HCl [Flomax] 0.4 mg PO DAILY #30 cap.er.24h 06/17/16 Cephalexin [Keflex] 500 mg PO Q12HR 4 Days #8 cap 12/26/18 Allergies Allergy/AdvReac Type Severity Reaction Status Date / Time lactose Allergy Nausea & Verified 01/14/22 20:27 Vomiting & Diarrhea Review of Systems ROS Statement: Those systems with pertinent positive or pertinent negative responses have been documented in the HPI. ROS Other: All systems not noted in ROS Statement are negative. Past Medical History Past Medical History: CVA/TIA, Hypertension Additional Past Medical History / Comment(s): crush injury to right hand, History of Any Multi-Drug Resistant Organisms: None Reported Past Surgical History: Hernia Repair, Tonsillectomy Additional Past Surgical History / Comment(s): TEETH EXTRACTIONS, metacarpal surgery, Past Anesthesia/Blood Transfusion Reactions: No Reported Reaction Past Psychological History: No Psychological Hx Reported Smoking Status: Never smoker Past Alcohol Use History: Rare Past Drug Use History: None Reported - Past Family History Father Family Medical History: Cancer Additional Family Medical History / Comment(s): COLON CANCER General Exam Limitations: no limitations General appearance: alert, in no apparent distress, anxious Head exam: Present: atraumatic, normocephalic, normal inspection Eye exam: Present: normal appearance, PERRL, EOMI. Absent: scleral icterus, conjunctival injection, periorbital swelling ENT exam: Present: normal exam, mucous membranes moist Neck exam: Present: normal inspection. Absent: tenderness, meningismus, lymphadenopathy Respiratory exam: Present: normal lung sounds bilaterally. Absent: respiratory distress, wheezes, rales, rhonchi, stridor Cardiovascular Exam: Present: regular rate, normal rhythm, normal heart sounds. Absent: systolic murmur, diastolic murmur, rubs, gallop, clicks GI/Abdominal exam: Present: soft, normal bowel sounds. Absent: distended, tenderness, guarding, rebound, rigid Extremities exam: Present: normal inspection, full ROM, normal capillary refill. Absent: tenderness, pedal edema, joint swelling, calf tenderness Back exam: Present: normal inspection Neurological exam: Present: alert, oriented X3, CN II-XII intact Psychiatric exam: Present: normal affect, normal mood Skin exam: Present: warm, dry, intact, normal color. Absent: rash Course Vital Signs 01/14/22 20:27 Temperature 97.9 F Pulse Rate 68 Respiratory 18 Rate Blood Pressure 160/89 O2 Sat by Pulse 95 Oximetry - Reevaluation(s) Reevaluation #1: 01/15/22 00:14 Medical record is reviewed Reevaluation #2: 01/15/22 00:14 A patient is informed of results and questions answered Reevaluation #3: 01/15/22 00:15 Patient's pain is improved feels good for discharge home Medical Decision Making - Medical Decision Making 71 male DF for evaluation. Patient states he's coming DF for evaluation of severe left-sided abdominal pain flank pain. History of kidney stones positive kidney stone today she is consult, pain is controlled here in the ER patient can be discharged home - Lab Data Result diagrams: 01/14/22 20:33 01/14/22 20:33 Lab Results 10/01/14/22 01/14/22 Range/Units 20:33 20:33 20:33 WBC 8.7 (3.8-10.6) k/uL RBC 5.67 (4.30-5.90) m/uL Hgb 17.0 (13.0-17.5) gm/dL Hct 49.0 (39.0-53.0) % MCV 86.4 (80.0-100.0) fL MCH 29.9 (25.0-35.0) pg MCHC 34.6 (31.0-37.0) g/dL RDW 13.0 (11.5-15.5) % Plt Count 216 (150-450) k/uL MPV 7.8 Neutrophils % 77 % Lymphocytes % 14 % Monocytes % 6 % Eosinophils % 2 % Basophils % 1 % Neutrophils # 6.7 (1.3-7.7) k/uL Lymphocytes # 1.3 (1.0-4.8) k/uL Monocytes # 0.5 (0-1.0) k/uL Eosinophils # 0.1 (0-0.7) k/uL Basophils # 0.1 (0-0.2) k/uL Sodium 138 (137-145) mmol/L Potassium 4.5 (3.5-5.1) mmol/L Chloride 102 (98-107) mmol/L Carbon Dioxide 27 (22-30) mmol/L Anion Gap 9 mmol/L BUN 25 H (9-20) mg/dL Creatinine 1.34 H (0.66-1.25) mg/dL Est GFR (CKD-EPI)AfAm 62 (>60 ml/min/1.73 sqM) Est GFR (CKD-EPI)NonAf 54 (>60 ml/min/1.73 sqM) Glucose 205 H (74-99) mg/dL Calcium 9.7 (8.4-10.2) mg/dL Total Bilirubin 1.5 H (0.2-1.3) mg/dL AST 28 (17-59) U/L ALT 33 (4-49) U/L Alkaline Phosphatase 91 (38-126) U/L Troponin I (0.000-0.034) ng/mL Total Protein 7.1 (6.3-8.2) g/dL Albumin 4.4 (3.5-5.0) g/dL Amylase 60 (30-110) U/L Lipase 234 (23-300) U/L Urine Color Yellow Urine Appearance Clear (Clear) Urine pH 5.5 (5.0-8.0) Ur Specific Unity 1.023 (1.001-1.035) Urine Protein Trace H (Negative) Urine Glucose (UA) 4+ H (Negative) Urine Ketones Negative (Negative) Urine Blood Trace H (Negative) Urine Nitrite Negative (Negative) Urine Bilirubin Negative (Negative) Urine Urobilinogen <2.0 (<2.0) mg/dL Ur Leukocyte Esterase Negative (Negative) Urine RBC 6 H (0-5) /hpf Urine WBC 5 (0-5) /hpf Ur Squamous Epith Cells <1 (0-4) /hpf Hyaline Casts 1 (0-2) /lpf Urine Mucus Occasional H (None) /hpf 01/14/22 Range/Units 20:33 WBC (3.8-10.6) k/uL RBC (4.30-5.90) m/uL Hgb (13.0-17.5) gm/dL Hct (39.0-53.0) % MCV (80.0-100.0) fL MCH (25.0-35.0) pg MCHC (31.0-37.0) g/dL RDW (11.5-15.5) % Plt Count (150-450) k/uL MPV Neutrophils % % Lymphocytes % % Monocytes % % Eosinophils % % Basophils % % Neutrophils # (1.3-7.7) k/uL Lymphocytes # (1.0-4.8) k/uL Monocytes # (0-1.0) k/uL Eosinophils # (0-0.7) k/uL Basophils # (0-0.2) k/uL Sodium (137-145) mmol/L Potassium (3.5-5.1) mmol/L Chloride (98-107) mmol/L Carbon Dioxide (22-30) mmol/L Anion Gap mmol/L BUN (9-20) mg/dL Creatinine (0.66-1.25) mg/dL Est GFR (CKD-EPI)AfAm (>60 ml/min/1.73 sqM) Est GFR (CKD-EPI)NonAf (>60 ml/min/1.73 sqM) Glucose (74-99) mg/dL Calcium (8.4-10.2) mg/dL Total Bilirubin (0.2-1.3) mg/dL AST (17-59) U/L ALT (4-49) U/L Alkaline Phosphatase (38-126) U/L Troponin I <0.012 (0.000-0.034) ng/mL Total Protein (6.3-8.2) g/dL Albumin (3.5-5.0) g/dL Amylase (30-110) U/L Lipase (23-300) U/L Urine Color Urine Appearance (Clear) Urine pH (5.0-8.0) Ur Specific Unity (1.001-1.035) Urine Protein (Negative) Urine Glucose (UA) (Negative) Urine Ketones (Negative) Urine Blood (Negative) Urine Nitrite (Negative) Urine Bilirubin (Negative) Urine Urobilinogen (<2.0) mg/dL Ur Leukocyte Esterase (Negative) Urine RBC (0-5) /hpf Urine WBC (0-5) /hpf Ur Squamous Epith Cells (0-4) /hpf Hyaline Casts (0-2) /lpf Urine Mucus (None) /hpf - Radiology Data Radiology results: report reviewed (CT of the abdomen and pelvis positive for left UVJ kidney stone), image reviewed Disposition Clinical Impression: Abdominal pain, Left ureteral stone Disposition: HOME SELF-CARE Condition: Good Instructions (If sedation given, give patient instructions): Kidney Stones (ED) Is patient prescribed a controlled substance at d/c from ED?: No Referrals: None,Stated [Primary Care Provider] - 1-2 days Time of Disposition: 00:15
--- NOTE | 2022-01-14 23:39 | CT ---
EXAMINATION TYPE: CT abdomen pelvis wo con DATE OF EXAM: 01/14/2022 COMPARISON: None HISTORY: LT FLANK PAIN X FEW HOURS, NAUSEA, URGENCY TO URINATE CT DLP: 741.4 mGycm Automated exposure control for dose reduction was used. Images obtained from the diaphragm to the floor the pelvis with no contrast. Lung bases show mild subsegmental atelectasis. Heart size is normal. No pericardial effusion. Liver s pleen and stomach pancreas appear intact. There is small calcified gallstone. The bile ducts are not dilated. There is no adrenal mass. There is left-sided hydronephrosis and hydroureter. There is 6 mm obstructi ng calculus at the left ureterovesical junction. There are small scattered calculi in the left kidney . There is left side 3.6 cm cortical cyst. The right kidney shows no sign of obstruction. No retroper itoneal adenopathy. Appendix is posterior and appears normal. The lumbar vertebrae appear intact. No compression fracture. There are degenerative spurring througho ut the lumbar spine. Bony pelvis is intact. The hip joints are intact. There is no mesenteric edema. No ascites or free air. No bowel obstruction. IMPRESSION: Obstructing calculus at the left ureterovesical junction. Left-sided hydronephrosis and hydroureter. Small left sided renal calculi.
[2022-01-14] MEDS ORDERED: ONDANSETRON 4 MG/2 ML VIAL IVP STA (23:50)
[2022-01-14] MEDS ORDERED: TAMSULOSIN 0.4 MG CAP.ER.24H PO STA (23:50)
[2022-01-14] MEDS ORDERED: SODIUM CHLORIDE 0.9% 1,000 ML IV STA (23:50)
[2022-01-14] MEDS ORDERED: KETOROLAC 15 MG/ML 1 ML VIAL IVP STA (23:50)
[2022-01-14] MEDS ORDERED: MORPHINE SULFATE 4 MG/ML SYRINGE IVP STA (23:50)
[2022-01-15] MEDS ORDERED: IBUPROFEN 600 MG STARTER PACK 4 TAB BTL PO STA (00:12)
[2022-01-15] MEDS ORDERED: ONDANSETRON 4 MG ODT STARTER PACK 2 TAB BTL PO STA (00:12)
[2022-01-15] MEDS ORDERED: ACET/COD 300 MG/30 MG STARTER PACK 6 TAB BTL PO STA (00:12)
[2022-01-15 01:35] VITALS: BP 166/76; PULSE 87; RESP 15
== END 2022-01-15 01:35 | disposition home or self-care (01) ==
LOC: EC 20:23
DX: N20.1 Calculus of ureter (principal); Z86.73 Personal history of transient ischemic attack (TIA), and cerebral infarction without residual deficits; I10 Essential (primary) hypertension; Z91.011 Allergy to milk products; Z79.82 Long term (current) use of aspirin; Z79.899 Other long term (current) drug therapy
CPT/HCPCS: 36415; 80053; 82150; 83690; 84484; 85025; 81001; 74018; 74176; 99284; 96374; 96375 ×2; 96361; J2270; J2405; J1885; S0119; 93005